=== PATIENT | male | born 1980 | race Hispanic/Latino ===

== ENCOUNTER → 2024-03-18 15:52 | Outpatient (REF) | payer OTHER, SELFPAY | LOC: HWRAD 15:52 | PROVIDERS: ATTENDING PHYSICIAN Student in an Organized Health Care Education/Training Program | DX: M25.562 Pain in left knee (principal) | CPT/HCPCS: 73564 ==

== ENCOUNTER → 2024-05-07 15:53 | Outpatient (REF) | payer OTHER, SELFPAY | LOC: MRI 3T 15:53 | PROVIDERS: ATTENDING PHYSICIAN Student in an Organized Health Care Education/Training Program | DX: M25.562 Pain in left knee (principal) | CPT/HCPCS: 73721 ==

== ENCOUNTER 2024-12-29 13:52 | Emergency (ER) | payer OTHER, SELFPAY ==
[2024-12-29 13:57] VITALS: BP 135/81
[2024-12-29 14:46] LABS: % Basophils 0.4 % (0-2); % Eosinophils 0.1 % (0-6); % Immature Granulocytes 0.4 % (0-0.5); % Lymphocytes 20.5 % (20.5-51.1); % Monocytes 10.9 % (1.7-9.3); % Neutrophils 67.7 % (42.2-75.2); Absolute Lymphocytes 1.5 10^3/uL (1.2-3.4); Absolute Monocytes 0.8 10^3/uL (0.1-0.6); Absolute Neutrophils 4.9 10^3/uL (1.4-6.5); Hematocrit 41.8 % (39.0-52.0); Hemoglobin 15.2 g/dL (13.0-18.0); Mean Corp Hgb Conc. 36.4 g/dL (33.0-37.0); Mean Corpuscular Hgb 31.6 pg (27.0-31.0); Mean Corpuscular Volume 86.9 fL (80.0-94.0); Mean Platelet Volume 10.7 fL (7.4-10.4); Nucleated Red Blood Cells % 0 % (-); Platelet Count 178 10^3/uL (130-400); Red Blood Cell Count 4.81 10^6/uL (4.70-6.10); Red Cell Dist. Width 12.5 % (11.5-14.5); White Blood Cell Count 7.3 10^3/uL (4.8-10.8)
[2024-12-29 14:47] LABS: ALT (SGPT) 45 U/L (0-50); AST (SGOT) 41 U/L (17-59); Albumin 4.7 g/dl (3.5-5.0); Alkaline Phosphatase 77 U/L (38-126); Blood Urea Nitrogen 9 mg/dl (9-20); Calcium 9.2 mg/dl (8.4-10.2); Carbon Dioxide 25 mmol/L (22-30); Chloride 100 mmol/L (98-107); Glucose 120 mg/dl (70-99); Potassium 4.5 mmol/L (3.5-5.1); Sodium 137 mmol/L (135-145); Total Bilirubin 0.5 mg/dl (0.2-1.3); Total Protein 7.9 g/dl (6.3-8.2); eGFR > 60.00
[2024-12-29 14:48] LABS: COVID-19 Antigen Negative (Negative)
--- NOTE | 2024-12-29 15:29 | ED.GENMED ---
History of Present Illness
General
Chief Complaint: Cold/Flu/URI Symptoms
Source: patient and spouse ( at bedside assisting w/ translation)
Exam Limitations: none
Time Seen by Provider: 12/29/24 15:13
Nursing documentation reviewed up to this point in time: agreed with
History of Present Illness
History of Present Illness:
Patient is a 44 year old male presenting to the emergency department with acute onset upper abdominal cramping today after having a bowel movement. Patient reports feeling generally unwell for the past 2.5 weeks although symptoms seemed to worsen a
few days ago. He reports headache, fatigue, anorexia, body aches, and productive cough with mostly light brown sputum. He has noticed some very mild blood tinges to sputum, as well. No sayra hemoptysis. Today patient states he was having a bowel
movement when he developed severe upper abdominal cramping.
Patient denies any chest pain, shortness of breath, lightheadedness/dizziness. He has had very little appetite and feels dehydrated.
Patient had his appendix removed many years ago.
No recent travel or recent surgeries. No personal or family hx of blood clots.
Past History
Past History
ED Past Medical History: None
ED Past Surgical History: None
Social History
Tobacco: Non-smoker
Alcohol: None
Review of Systems
Review of Systems
Allergies reviewed?: Yes
All Other Systems: ROS reviewed and negative except as documented in HPI and ROS
Phy Exam
Physical Exam
Physical Exam:
General: Well appearing and non-toxic
HEENT: Normocephalic, atraumatic; Pupils equal round and reactive to light bilaterally, mild pharyngeal erythema without tonsillar edema or exudates, uvula midline, protecting airway
Neck: appears supple, no meningeal signs
CV: RRR, heart sounds normal, no evidence of cyanosis
Resp: Normal respiratory effort, lungs clear bilaterally w/ mild expiratory wheeze in upper lung lowery
Abd: Non-distended, abdomen soft with mild tenderness in both RUQ and LUQ, no rebound tenderness or guarding
Extremities: No deformities. Palpable DP pulses bilaterally
Neuro: alert & oriented x3. Grossly intact
Psych: Normal affect
Skin: Intact. No rashes
Sepsis
Sepsis Screening
Sepsis Assessment: Sepsis Ruled Out
Sepsis Screen
Sepsis Screen: Sepsis Ruled Out
Date: 12/29/24
Time: 23:26
Course
Orders/Labs/Results
Orders:
Orders
12/29/24 14:00
Chest [CR Chest - 2 Views ] Urgent
Comment:
Reason For Exam: cough, SOB
12/29/24 14:11
COVID-19 Antigen Urgent
Source: Nasal Swab
Complete Blood Count/With Diff Urgent
Comprehensive Metabolic Panel Urgent
Monotest Urgent
Comment: ADD ON
Influenza A+B Rapid Molecular Urgent
LUCÍA Source: Nasal Swab
Specimen Description:
12/29/24 15:27
Add On- LAB Urgent
Tests Added?: monospot
0.9% Sodium Chloride 1000 ml [Nss] 1,000 ml IV BOLUS
Ipratropium/Albuterol Sulfate [Duoneb] 3 ml INH R NOW STA
Ketorolac [Toradol] 15 mg IV NOW STA
US Abdomen Complete/Upper Urgent
Comment: influenza B positive
Reason For Exam: Upper abdominal pain, anorexia, vomiting
12/29/24 17:55
Amoxicillin 875 mg/Clav 125 mg [Augmentin 875 mg/125 mg] 1 tablet PO NOW STA
Doxycycline [Vibramycin] 100 mg PO NOW STA
Abnormal Lab Results
12/29/24
14:11
MCH 31.6 H pg
(27.0-31.0)
MPV 10.7 H fL
(7.4-10.4)
Absolute Monos (auto) 0.8 H 10^3/uL
(0.1-0.6)
Monocytes % 10.9 H %
(1.7-9.3)
Glucose 120 H mg/dl
(70-99)
12/29/24 14:11
12/29/24 14:11
Vital Signs
Initial and Last Documented VS:
Initial Vital Signs
Temp Pulse Resp BP Pulse Ox
99.0 F 65 20 135/81 97
12/29/24 13:57 12/29/24 13:57 12/29/24 13:57 12/29/24 13:57 12/29/24 13:57
Last Documented Vital Signs
Temp Pulse Resp BP Pulse Ox
99.0 F 68 16 132/88 98
12/29/24 13:57 12/29/24 18:04 12/29/24 18:04 12/29/24 18:04 12/29/24 18:04
MDM/Problems Addressed
Differential Diagnosis Includes:
Not limited to: viral illness, bronchitis, gastroenteritis, biliary colic, acute cholecystitis, etc
MDM/Problems Addressed:
44-year-old male presenting with 2 weeks of viral URI symptoms with acute worsening a few days ago and now acute onset abdominal pain today. No chest pain,, shortness of breath, or vomiting. Patient mildly hypertensive with otherwise stable vital
signs. He is afebrile. Physical exam as above. Patient in no apparent distress, nontoxic appearing. Heart regular rate and rhythm. Lungs mostly clear with mild expiratory wheeze bilaterally. Abdomen soft with mild upper abdominal tenderness.
No lower extremity edema. Screening labs were sent off prior to my initial evaluation without any clinically significant abnormalities. There is no leukocytosis. Patient was found to be positive for influenza B. Feel viral illness likely
contributing to majority patient was today. Will check chest x-ray to rule out associated pneumonia and abdominal ultrasound given upper abdominal pain. Will give IV fluids, Toradol, DuoNeb. Will closely monitor and reassess.
Update: Chest x-ray does show likely multifocal pneumonia. Abdominal ultrasound without acute abnormalities. Patient reports improvement in symptoms following Toradol and fluids. DuoNeb did help with cough. Patient otherwise well and comfortable
appearing. Patient not hypoxic or tachypneic and otherwise nontoxic-appearing�admit not indicated. Will treat patient with antibiotics for pneumonia and discharged with albuterol inhaler as needed. Close return precautions discussed with patient.
He will follow-up with primary care outpatient. Patient comfortable with plan.
Chronic conditions affecting care:
N/A
Acute Exacerbation and/or Progression of Chronic Illness:
N/A
*Radiology
Radiology exam reviewed: radiology read reviewed (Multifocal pneumonia)
*Pulse Oximetry
Patient hypoxic: no
*EKG
Interpreted by ED Provider?: NA
*Outside Physical Damage Appraiser Interpretation
Rate: Outside Physical Damage Appraiser- N/A
*Critical Care Note
Total Time (30-74mins, 75-104mins- exclusive of procedures): Not Applicable
Patient Management
Escalation/DeEscalation of care consider admission/obs:
Admit not indicated
ED Attending Note
-
Portions of this chart may have been created with voice recognition software.� Occasional wrong word or��sound alike� substitutions may have occurred due to the inherent limitations of voice recognition software.
Discharge Plan
Departure
Patient Disposition: Home (Routine Discharge)
Date of Disposition: 12/29/24
Time of Disposition: 17:57
Patient with high blood pressure during this ER visit?: Yes
Condition: Good
Covid-19: Negative COVID-19
Discharge Problem:
Influenza B, Community acquired pneumonia
Instructions: Pneumonia in adults - Discharge instructions, Flu in adults - ED discharge instructions, BLOOD PRESSURE
Prescriptions:
New
amoxicillin-pot clavulanate 875-125 mg tablet
1 tab PO BID 5 Days Qty: 10 0RF
doxycycline hyclate 100 mg capsule
100 mg PO BID 5 Days Qty: 10 0RF
albuterol sulfate [Ventolin HFA] 90 mcg/actuation HFA aerosol inhaler
1 inh inhalation Q6H PRN (Reason: shortness of breath or wheezing, cough) Qty: 6.7 0RF
No Action
oseltamivir 75 MG capsule
75 mg PO BID Qty: 9 0RF
penicillin V potassium 500 mg tablet
500 mg PO TID 7 Days Qty: 21 0RF
Referrals:
Wesley Valdez, [Family Provider] - Follow up in 5-7 days
Activity Restrictions/Additional Instructions:
RETURN TO THE EMERGENCY DEPARTMENT WITH ANY HIGH FEVERS, CHEST PAIN, SHORTNESS OF BREATH/DIFFICULTY BREATHING, BLOOD IN SPUTUM, WORSENING IN CURRENT SYMPTOMS, OR ANY OTHER CONCERNS
-As discussed your influenza test was positive today. You were found to have pneumonia on xray.
-Two antibiotics have been sent to your pharmacy. Take these medication twice per day for 5 days. You can use inhaler every 4-6 hours as needed for cough/wheezing.
-It is important to stay well hydrated and get plenty of rest. Take tylenol/motrin as needed for fever, body aches, or headache
-Follow-up with PCP within a week for further evaluation/management
Monitor your symptoms closely and return to the emergency department with any acute worsening/new symptoms or any other concerns
Interventions
Interventions:
*Risk Screen - Suicide Last Done: 12/29/24 13:57
*General Assessment Last Done: 12/29/24 13:57
*Neglect/Abuse Screening Last Done: 12/29/24 15:13
*ED- Fall Risk Assessment Last Done: 12/29/24 15:13
*ED COVID-19 Vaccine History Last Done: 12/29/24 15:13
*Nursing Disposition Last Done: 12/29/24 18:05
ED- Pulmonary Assessment Last Done: 12/29/24 15:13
Discharge Date and Time
Discharge Date/Time: 12/29/24 18:18
Print Language: CITIZEN OF [place]
[2024-12-29] MEDS: DUONEB 3 ML INH (15:47)
[2024-12-29] MEDS: TORADOL 15 MG IV (15:47)
[2024-12-29] MEDS: NSS 1000 IV (15:47)
[2024-12-29 16:14] VITALS: BP 139/91
[2024-12-29 17:09] LABS: Monotest Negative (Negative)
[2024-12-29] MEDS: AUGMENTIN 875 MG/125 MG 1 TABLET PO (18:02)
[2024-12-29] MEDS: VIBRAMYCIN 100 MG PO (18:02)
[2024-12-29 18:04] VITALS: BP 132/88
== END 2024-12-29 18:18 | disposition home or self-care (01) ==
LOC: EMR 13:52
PROVIDERS: Student in an Organized Health Care Education/Training Program; EMERGENCY PHYSICIAN Student in an Organized Health Care Education/Training Program; FAMILY PHYSICIAN Family Medicine
DX: J10.00 Influenza due to other identified influenza virus with unspecified type of pneumonia (principal)
CPT/HCPCS: 99284; 94640; 96374; 96361; 71046; 76700; 80053; 85025; 86308; 87502; 87811

== ENCOUNTER → 2025-03-30 14:36 | Outpatient (REF) | payer OTHER, SELFPAY | LOC: HWRAD 14:36 | PROVIDERS: ATTENDING PHYSICIAN Family Medicine | DX: M25.561 Pain in right knee (principal) | CPT/HCPCS: 73564 ==

== ENCOUNTER → 2025-05-29 07:00 | Outpatient (REF) | payer OTHER, SELFPAY | LOC: PAVMRI 07:00 | PROVIDERS: ATTENDING PHYSICIAN Specialist; FAMILY PHYSICIAN Family Medicine | DX: M25.561 Pain in right knee (principal) | CPT/HCPCS: 73721 ==

== ENCOUNTER 2025-09-11 06:07 | Day surgery (SDC) | payer OTHER, SELFPAY ==
[2025-09-11] VITALS (7 sets, daily range): BP systolic 103–117; BP diastolic 63–75; BMI 41.6
[2025-09-11] MEDS: NORMOSOL-R/PLASMALYTE-A 1000 IV (07:35)
[2025-09-11] MEDS: CELEBREX 200 MG PO (07:42)
[2025-09-11] MEDS: TYLENOL 1000 MG PO (07:42)
[2025-09-11] MEDS: ROXICODONE 5 MG PO (10:02)
== END 2025-09-11 10:47 | disposition home or self-care (01) ==
LOC: SDS 06:07
PROVIDERS: ATTENDING PHYSICIAN Specialist
DX: S83.231A Complex tear of medial meniscus, current injury, right knee, initial encounter (principal); X58.XXXA Exposure to other specified factors, initial encounter; M22.41 Chondromalacia patellae, right knee; M25.861 Other specified joint disorders, right knee
CPT/HCPCS: 29879; 29881